=== PATIENT | female | born 1980 | race Caucasian/White ===

== ENCOUNTER 2019-06-28 15:39 | Emergency (ER) | payer MEDICAID ==
[2019-06-28] MEDS: ACETAMINOPHEN 500 MG TAB PO (16:45)
[2019-06-28] MEDS: ONDANSETRON (ODT) 4 MG TAB ODT (16:45)
[2019-06-28] MEDS: KETOROLAC 30 MG INJ IM (16:52)
[2019-06-28 16:59] LABS: ADD UMIC YES; UR ASCORBIC ACID NEGATIVE (NEGATIVE); UR BILIRUBIN (Dip) NEGATIVE (NEGATIVE); UR BLOOD (Dip) NEGATIVE (NEGATIVE); UR CLARITY SLIGHTLY CLOUDY (CLEAR); UR COLOR YELLOW (YELLOW); UR GLUCOSE (Dip) NEGATIVE (NEGATIVE); UR KETONES (Dip) NEGATIVE (NEGATIVE); UR LEUKOCYTE ESTERASE (Dip) 1+ Leu/ul (NEGATIVE); UR NITRITE (Dip) NEGATIVE (NEGATIVE); UR RBC 1 /HPF (0-5); UR SQUAMOUS EPITHELIAL CELL MODERATE /HPF (FEW); UR TOTAL PROTEIN (Dip) NEGATIVE (NEGATIVE); UR UROBILINOGEN (Dip) NEGATIVE (NEGATIVE); UR WBC 17 /HPF (0-5)
== END 2019-06-28 17:42 | disposition home or self-care (01) ==
LOC: FTE 15:39
DX: G44.229 Chronic tension-type headache, not intractable (principal); N30.90 Cystitis, unspecified without hematuria
CPT/HCPCS: 81001; 81025; 96372; 99284-25